=== PATIENT | female | born 1950 | race Caucasian/White ===

== ENCOUNTER → 2018-03-15 | Outpatient (CLI) | payer MEDICARE, BC ==
--- NOTE | 2018-03-15 17:25 | BD ---
EXAMINATION TYPE: Axial Bone Density DATE OF EXAM: 03/15/2018 COMPARISON: NONE CLINICAL HISTORY: 67-year-old female postmenopausal screening Height: 4'11 1/2 Weight: 194 FRAX RISK QUESTIONS: Secondary Osteoporosis: RISK FACTORS HISTORY OF: Family History of Osteoporosis: y Active: y Postmenopausal woman: y MEDICATIONS: Thyroid Medications: Which medication: Synthroid How Lon years Additional Medications: cholesterol, urine frequency, minears Additional History: EXAM MEASUREMENTS: Bone mineral densitometry was performed using the [employer] System. Bone mineral density as measured about the Lumbar spine is: ----- L1-L4(G/cm2): 0.942 T Score Values are as follows: ----- L2: -2.0 ----- L3: -2.0 ----- L4: -1.7 ----- L1-L4: -2.0 Bone mineral density about the R hip (g/cm2): 0.903 Bone mineral density about the L hip (g/cm2): 0.960 T Score values are as follows: -----R Neck: -1.0 -----L Neck: -0.6 -----R Total: -0.4 -----L Total: 0.1 IMPRESSION: Osteopenia (T Score between -2.5 and -1). There is slightly increased risk of fracture and the patient may be considered for treatment. Re-Screen 2-5 years. NOTE: T-SCORE=SD OF THE YOUNG ADULT MEAN.
== END | disposition home or self-care (01) ==
LOC: RADBDWWP 12:59
PROVIDERS: ATTEND Family Medicine
DX: Z13.820 Encounter for screening for osteoporosis (principal); M85.80 Other specified disorders of bone density and structure, unspecified site
CPT/HCPCS: 77080

== ENCOUNTER 2021-05-09 16:51 | Inpatient (IN) | payer MEDICARE, BC ==
[2021-05-09] MEDS ORDERED: SODIUM CHLORIDE 0.9% 1,000 ML IV STA (18:07)
[2021-05-09] MEDS ORDERED: MORPHINE SULFATE 4 MG/ML SYRINGE IVP STA (18:16)
[2021-05-09] MEDS ORDERED: ONDANSETRON 4 MG/2 ML VIAL IVP STA (18:16)
--- NOTE | 2021-05-09 19:13 | ED ---
Abdominal Pain HPI - General Chief Complaint: Abdominal Pain Stated Complaint: Abdominal Pain Time Seen by Provider: 05/09/21 18:07 Source: patient Mode of arrival: ambulatory Limitations: no limitations - History of Present Illness Initial Comments: Anne is a 70-year-old female presents the ER today for evaluation of abdominal pain hroughout the day. Patient reports that she does have a history of what she considers gallbladder attacks but states in the past she's had pain that lasts only 15-20 minutes. She states that yesterday evening the pain began, she's had pain throughout the day. Pain seems to be in the upper abdomen bilaterally worse in the epigastrium and right upper quadrant. Pain is associated with nausea and an episode of vomiting after eating this morning. She was able tolerate some fluids and soup this evening but pain worsened. Patient has no history of surgeries in the abdomen. No associated fevers chills nausea or vomiting. Last bowel movement was yesterday was normal in color caliber and consistency. - Related Data Home Medications Medication Instructions Recorded Confirmed Cholecalciferol [Vitamin D3 (25 25 mcg PO DAILY 06/13/16 05/09/21 Mcg = 1000 Iu)] Liothyronine Sodium [Cytomel] 5 mcg PO DAILY 06/13/16 05/09/21 Meclizine [Antivert] 25 mg PO DAILY 06/13/16 05/09/21 Multivit-Min/FA/Lycopen/Lutein 1 tab PO DAILY 06/13/16 05/09/21 [Centrum Silver Tablet] Triamterene-Hctz 37.5-25Mg 1 cap PO DAILY 06/13/16 05/09/21 [Dyazide 37.5-25 Capsule] Turmeric Root Extract [Turmeric] 500 mg PO TID 06/13/16 05/09/21 Ascorbic Acid [Vitamin C] 500 mg PO DAILY 05/09/21 05/09/21 Aspirin 81 mg PO BID 05/09/21 05/09/21 Garlic 1 tab PO DAILY 05/09/21 05/09/21 Glucosam/Ravinder-Msm1/C/Yusef/Bosw 1 tab PO DAILY 05/09/21 05/09/21 [Glucosamine-Chondroitin Tablet] Levothyroxine Sodium [Synthroid] 112 mcg PO DAILY 05/09/21 05/09/21 Magnesium Citrate 125 mg PO DAILY 05/09/21 05/09/21 Mirabegron [Myrbetriq] 50 mg PO DAILY 05/09/21 05/09/21 Vitamin B Complex 1 cap PO DAILY 05/09/21 05/09/21 Allergies Allergy/AdvReac Type Severity Reaction Status Date / Time benzoyl peroxide Allergy Rash/Hives Verified 05/09/21 17:55 Review of Systems ROS Statement: Those systems with pertinent positive or pertinent negative responses have been documented in the HPI. ROS Other: All systems not noted in ROS Statement are negative. 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 History of Any Multi-Drug Resistant Organisms: None Reported Past Surgical History: Section Additional Past Surgical History / Comment(s): biopsy of gland on neck at 19 years of age, was negative Past Anesthesia/Blood Transfusion Reactions: No Reported Reaction Past Psychological History: No Psychological Hx Reported Smoking Status: Never smoker Past Alcohol Use History: None Reported, Rare Past Drug Use History: None Reported - Past Family History Father Family Medical History: Cancer, Thyroid Disorder Mother Family Medical History: Dementia, Hyperlipidemia, Hypertension, Osteoarthritis (OA), Rheumatoid Arthritis (RA), Thyroid Disorder General Exam - General Exam Comments Initial Comments: Physical Exam GENERAL: Patient is well-developed and well-nourished. Patient is nontoxic and well- hydrated and is in no distress. HENT: Normocephalic, Atraumatic. EYES: PERRL, EOMI PULMONARY: Unlabored respirations. No audible rales rhonchi or wheezing was noted. CARDIOVASCULAR: There is a regular rate and rhythm without any murmurs gallops or rubs. ABDOMEN: Soft, tender to palpation in bilateral upper quadrants Hypoactive bowel sounds SKIN: Skin is clear with no lesions or rashes and otherwise unremarkable. : Deferred NEUROLOGIC: Patient is alert and oriented x3. Moving all extremities spontaneously MUSCULOSKELETAL: Normal extremities with adequate strength and full range of motion. No lower extremity swelling or edema. No calf tenderness. PSYCHIATRIC: Normal psychiatric evaluation. Limitations: no limitations Course Vital Signs 05/09/21 05/09/21 05/09/21 17:56 18:58 21:06 Temperature 98.7 F 98.1 F Pulse Rate 101 H 99 100 Respiratory 18 18 18 Rate Blood Pressure 137/71 141/77 119/65 O2 Sat by Pulse 96 96 95 Oximetry 05/09/21 22:37 Temperature Pulse Rate Respiratory 18 Rate Blood Pressure O2 Sat by Pulse Oximetry Medical Decision Making - Medical Decision Making Patient was seen and evaluated history is obtained from patient, 70-year-old female significant abdominal pain, constipation since yesterday, labs and computed tomography scan were obtained, CT does reveal sigmoid diverticulitis with microperforation. These findings were discussed with general surgeon Dr. Shah who accepts the patient to his service recommends nothing by mouth, IV fluids, antiemetics, pain management, antibiotics. Orders were placed patient was admitted to the hospital. - Lab Data Result diagrams: 05/09/21 19:05/09/21 19:01 Lab Results 05/09/21 05/09/21 05/09/21 Range/Units 19:01 19:01 19:01 WBC 6.9 (3.8-10.6) k/uL RBC 4.13 (3.80-5.40) m/uL Hgb 13.1 (11.4-16.0) gm/dL Hct 37.6 (34.0-46.0) % MCV 91.0 (80.0-100.0) fL MCH 31.7 (25.0-35.0) pg MCHC 34.9 (31.0-37.0) g/dL RDW 14.6 (11.5-15.5) % Plt Count 177 (150-450) k/uL MPV 8.0 Neutrophils % (Manual) 64 % Band Neuts % (Manual) 10 % Lymphocytes % (Manual) 7 % Monocytes % (Manual) 13 % Metamyelocytes % 6 % Neutrophils # (Manual) 5.10 (1.3-7.7) k/uL Lymphocytes # (Manual) 0.48 L (1.0-4.8) k/uL Monocytes # (Manual) 0.90 (0-1.0) k/uL Metamyelocytes # (Man) 0.41 H (0) k/uL Nucleated RBCs 0 (0-0) /100 WBC Manual Slide Review Performed Sodium 130 L (137-145) mmol/L Potassium 3.8 (3.5-5.1) mmol/L Chloride 97 L (98-107) mmol/L Carbon Dioxide 25 (22-30) mmol/L Anion Gap 8 mmol/L BUN 17 (7-17) mg/dL Creatinine 0.67 (0.52-1.04) mg/dL Est GFR (CKD-EPI)AfAm >90 (>60 ml/min/1.73 sqM) Est GFR (CKD-EPI)NonAf >90 (>60 ml/min/1.73 sqM) Glucose 144 H (74-99) mg/dL Plasma Lactic Acid [place] (0.7-2.0) mmol/L Calcium 9.8 (8.4-10.2) mg/dL Total Bilirubin 1.9 H (0.2-1.3) mg/dL AST 26 (14-36) U/L ALT 21 (4-34) U/L Alkaline Phosphatase 39 (38-126) U/L Total Protein 7.7 (6.3-8.2) g/dL Albumin 4.2 (3.5-5.0) g/dL Lipase 43 (23-300) U/L Urine Color Yellow Urine Appearance Clear (Clear) Urine pH 5.5 (5.0-8.0) Ur Specific [place] 1.012 (1.001-1.035) Urine Protein Negative (Negative) Urine Glucose (UA) Negative (Negative) Urine Ketones Negative (Negative) Urine Blood Small H (Negative) Urine Nitrite Negative (Negative) Urine Bilirubin Negative (Negative) Urine Urobilinogen <2.0 (<2.0) mg/dL Ur Leukocyte Esterase Small H (Negative) Urine RBC 4 (0-5) /hpf Urine WBC 8 H (0-5) /hpf Ur Squamous Epith Cells 3 (0-4) /hpf Urine Bacteria Rare H (None) /hpf Hyaline Casts 8 H (0-2) /lpf Urine Mucus Moderate H (None) /hpf 05/09/21 Range/Units 19:01 WBC (3.8-10.6) k/uL RBC (3.80-5.40) m/uL Hgb (11.4-16.0) gm/dL Hct (34.0-46.0) % MCV (80.0-100.0) fL MCH (25.0-35.0) pg MCHC (31.0-37.0) g/dL RDW (11.5-15.5) % Plt Count (150-450) k/uL MPV Neutrophils % (Manual) % Band Neuts % (Manual) % Lymphocytes % (Manual) % Monocytes % (Manual) % Metamyelocytes % % Neutrophils # (Manual) (1.3-7.7) k/uL Lymphocytes # (Manual) (1.0-4.8) k/uL Monocytes # (Manual) (0-1.0) k/uL Metamyelocytes # (Man) (0) k/uL Nucleated RBCs (0-0) /100 WBC Manual Slide Review Sodium (137-145) mmol/L Potassium (3.5-5.1) mmol/L Chloride (98-107) mmol/L Carbon Dioxide (22-30) mmol/L Anion Gap mmol/L BUN (7-17) mg/dL Creatinine (0.52-1.04) mg/dL Est GFR (CKD-EPI)AfAm (>60 ml/min/1.73 sqM) Est GFR (CKD-EPI)NonAf (>60 ml/min/1.73 sqM) Glucose (74-99) mg/dL Plasma Lactic Acid [place] 1.1 (0.7-2.0) mmol/L Calcium (8.4-10.2) mg/dL Total Bilirubin (0.2-1.3) mg/dL AST (14-36) U/L ALT (4-34) U/L Alkaline Phosphatase (38-126) U/L Total Protein (6.3-8.2) g/dL Albumin (3.5-5.0) g/dL Lipase (23-300) U/L Urine Color Urine Appearance (Clear) Urine pH (5.0-8.0) Ur Specific [place] (1.001-1.035) Urine Protein (Negative) Urine Glucose (UA) (Negative) Urine Ketones (Negative) Urine Blood (Negative) Urine Nitrite (Negative) Urine Bilirubin (Negative) Urine Urobilinogen (<2.0) mg/dL Ur Leukocyte Esterase (Negative) Urine RBC (0-5) /hpf Urine WBC (0-5) /hpf Ur Squamous Epith Cells (0-4) /hpf Urine Bacteria (None) /hpf Hyaline Casts (0-2) /lpf Urine Mucus (None) /hpf Disposition Clinical Impression: Perforated diverticulum of large intestine Disposition: ADMITTED IP TO THIS HOSP Condition: Serious
[2021-05-09 19:28] LABS: HCT 37.6 % (34.0-46.0); HGB 13.1 gm/dL (11.4-16.0); MCH 31.7 pg (25.0-35.0); MCHC 34.9 g/dL (31.0-37.0); Platelet Count 177 k/uL (150-450); RBC 4.13 m/uL (3.80-5.40); RDW 14.6 % (11.5-15.5); WBC 6.9 k/uL (3.8-10.6)
[2021-05-09 19:40] LABS: ALT 21 U/L (4-34); AST 26 U/L (14-36); African American GFR (CKD) >90 (>60 ml/min/1.73 sqM); Albumin 4.2 g/dL (3.5-5.0); Alkaline Phosphatase 39 U/L (38-126); Anion Gap 8 mmol/L; Blood Urea Nitrogen 17 mg/dL (7-17); Calcium 9.8 mg/dL (8.4-10.2); Carbon Dioxide 25 mmol/L (22-30); Chloride 97 mmol/L (98-107); Glucose 144 mg/dL (74-99); Lipase 43 U/L (23-300); Non-African American GFR(CKD) >90 (>60 ml/min/1.73 sqM); Potassium 3.8 mmol/L (3.5-5.1); Sodium 130 mmol/L (137-145); Total Bilirubin 1.9 mg/dL (0.2-1.3); Total Protein 7.7 g/dL (6.3-8.2)
[2021-05-09 19:43] LABS: Band Neutrophils % 10 %; Lymphocytes # (M) 0.48 k/uL (1.0-4.8); Metamyelocytes # (M) 0.41 k/uL (0); Metamyelocytes % 6 %; Neutrophils % (M) 64 %; Nucleated Red Blood Cells 0 /100 WBC (0-0); Total Cells Counted 100
[2021-05-09 20:21] LABS: Appearance,Urine Clear (Clear); Bacteria,Urine Rare /hpf; Bilirubin,Urine Negative (Negative); Blood,Urine Small (Negative); Color,Urine Yellow; Glucose,Urine (UA) Negative (Negative); Hyaline Casts,Urine 8 /lpf (0-2); Ketones,Urine Negative (Negative); Leukocyte Esterase,Urine Small (Negative); Mucus,Urine Moderate /hpf; Nitrite,Urine Negative (Negative); PH, Urine 5.5 (5.0-8.0); Protein,Urine Negative (Negative); RBC,Urine 4 /hpf (0-5); Specific Gravity,Urine 1.012 (1.001-1.035); Squamous Epithelial Cell,Urine 3 /hpf (0-4); Urobilinogen,Urine <2.0 mg/dL (<2.0); WBC,Urine 8 /hpf (0-5)
[2021-05-09] MEDS ORDERED: HYDROmorphone 0.5 MG/0.5 ML SYRINGE IVP STA (20:29)
--- NOTE | 2021-05-09 20:59 | CT ---
EXAMINATION TYPE: CT abdomen pelvis w con DATE OF EXAM: 05/09/2021 COMPARISON: None HISTORY: Generalized abdominal pain and constipation. CT DLP: 1237.5 mGycm CONTRAST: CT scan of the abdomen and pelvis is performed without Oral Contrast and with IV Contrast, patient in jected with 100 mL of Isovue 300. FINDINGS: LUNG BASES-: No visible nodule. No infiltrate. LIVER/GB: Large gallstones noted. No wall thickening seen. No space occupying hepatic lesion. Bili trang tree is of normal caliber. PANCREAS: No inflammation. No distinct mass. SPLEEN: No splenic enlargement. No lesion seen. ADRENALS: No nodule. No thickening. KIDNEYS/BLADDER: No hydronephrosis. No nephrolithiasis. No distinct renal mass. Urinary bladder g rossly unremarkable. BOWEL: There is moderate inflammatory change noted to involve the sigmoid colon small area of perfora tion seen. Findings are compatible with acute diverticulitis. No evidence for abscess at this time fo r domo pneumoperitoneum. There is evidence of small bowel ileus. GENITAL ORGANS: No gross abnormality. LYMPH NODES: No greater than 1cm abdominal or pelvic lymph nodes are appreciated. AORTA: No significant abnormality. OSSEOUS STRUCTURES: No significant abnormality is seen. OTHER: No significant additional abnormality is seen. IMPRESSION: 1. Moderate sigmoid diverticulitis without evidence for abscess. Small perforation noted. 2. Cholelithiasis. 3. Small bowel ileus.
[2021-05-09] MEDS ORDERED: MORPHINE SULFATE 4 MG/ML SYRINGE IV PRN (21:29)
[2021-05-09] MEDS ORDERED: NALOXONE 0.4 MG/ML 1 ML VIAL IV PRN (21:29)
[2021-05-09] MEDS ORDERED: ONDANSETRON 4 MG/2 ML VIAL IVP PRN (21:29)
[2021-05-09] MEDS: SODIUM CHLORIDE 0.9% 1,000 ML IV SCH (21:49)
[2021-05-10] MEDS: HYDROmorphone 0.5 MG/0.5 ML SYRINGE IVP PRN ×6 (00:02→20:20)
[2021-05-10] MEDS: PIPERACILLIN-TAZOBACTAM 3.375 GM in SODIUM CHLORIDE 0.9% 100 ML IVPB SCH ×3 (00:07→16:07)
[2021-05-10] MEDS: SODIUM CHLORIDE 0.9% 1,000 ML IV SCH ×2 (06:11→14:19)
--- NOTE | 2021-05-10 11:08 | P.GSHP ---
History of Present Illness H&P Date: 05/10/21 Chief Complaint: Diverticulitis with microperforation Is a 62-year-old female who had sudden acute abdominal pain yesterday. Patient was worked up emergency room found have evidence of diverticulitis with microperforation. She states her pain is improved compared to yesterday. 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 History of Any Multi-Drug Resistant Organisms: None Reported Past Surgical History: Section Additional Past Surgical History / Comment(s): biopsy of gland on neck at 19 years of age, was negative Past Anesthesia/Blood Transfusion Reactions: No Reported Reaction Past Psychological History: No Psychological Hx Reported Smoking Status: Never smoker Past Alcohol Use History: None Reported, Rare Past Drug Use History: None Reported - Past Family History Father Family Medical History: Cancer, Thyroid Disorder Additional Family Medical History / Comment(s): Throat cancer Mother Family Medical History: Dementia, Hyperlipidemia, Hypertension, Osteoarthritis (OA), Rheumatoid Arthritis (RA), Thyroid Disorder Medications and Allergies Home Medications Medication Instructions Recorded Confirmed Type Cholecalciferol [Vitamin D3 (25 25 mcg PO DAILY 06/13/16 05/09/21 History Mcg = 1000 Iu)] Liothyronine Sodium [Cytomel] 5 mcg PO DAILY 06/13/16 05/09/21 History Meclizine [Antivert] 25 mg PO DAILY 06/13/16 05/09/21 History Multivit-Min/FA/Lycopen/Lutein 1 tab PO DAILY 06/13/16 05/09/21 History [Centrum Silver Tablet] Triamterene-Hctz 37.5-25Mg 1 cap PO DAILY 06/13/16 05/09/21 History [Dyazide 37.5-25 Capsule] Turmeric Root Extract [Turmeric] 500 mg PO TID 06/13/16 05/09/21 History Ascorbic Acid [Vitamin C] 500 mg PO DAILY 05/09/21 05/09/21 History Aspirin 81 mg PO BID 05/09/21 05/09/21 History Garlic 1 tab PO DAILY 05/09/21 05/09/21 History Glucosam/Ravinder-Msm1/C/Yusef/Bosw 1 tab PO DAILY 05/09/21 05/09/21 History [Glucosamine-Chondroitin Tablet] Levothyroxine Sodium [Synthroid] 112 mcg PO DAILY 05/09/21 05/09/21 History Magnesium Citrate 125 mg PO DAILY 05/09/21 05/09/21 History Mirabegron [Myrbetriq] 50 mg PO DAILY 05/09/21 05/09/21 History Vitamin B Complex 1 cap PO DAILY 05/09/21 05/09/21 History Allergies Allergy/AdvReac Type Severity Reaction Status Date / Time benzoyl peroxide Allergy Rash/Hives Verified 05/09/21 17:55 Surgical - Exam Vital Signs Temp Pulse Resp BP Pulse Ox 98.7 F 101 H 18 137/71 96 05/09/21 17:56 05/09/21 17:56 05/09/21 17:56 05/09/21 17:56 05/09/21 17:56 - General well developed, well nourished, no distress - Eyes PERRL - ENT normal pinna - Neck no masses - Respiratory normal expansion - Cardiovascular Rhythm: regular - Abdomen Mild diffuse tenderness left side. There is no rebound or guarding Abdomen: soft Results - Labs 05/09/21 19:01 05/09/21 19:01 Abnormal Lab Results - Last 24 Hours (Table) 05/09/21 05/09/21 05/09/21 Range/Units 19:01 19:01 19:01 Lymphocytes # (Manual) 0.48 L (1.0-4.8) k/uL Metamyelocytes # (Man) 0.41 H (0) k/uL Sodium 130 L (137-145) mmol/L Chloride 97 L (98-107) mmol/L Glucose 144 H (74-99) mg/dL Total Bilirubin 1.9 H (0.2-1.3) mg/dL Urine Blood Small H (Negative) Ur Leukocyte Esterase Small H (Negative) Urine WBC 8 H (0-5) /hpf Urine Bacteria Rare H (None) /hpf Hyaline Casts 8 H (0-2) /lpf Urine Mucus Moderate H (None) /hpf Diabetes panel 05/09/21 Range/Units 19:01 Sodium 130 L (137-145) mmol/L Potassium 3.8 (3.5-5.1) mmol/L Chloride 97 L (98-107) mmol/L Carbon Dioxide 25 (22-30) mmol/L BUN 17 (7-17) mg/dL Creatinine 0.67 (0.52-1.04) mg/dL Glucose 144 H (74-99) mg/dL Calcium 9.8 (8.4-10.2) mg/dL AST 26 (14-36) U/L ALT 21 (4-34) U/L Alkaline Phosphatase 39 (38-126) U/L Total Protein 7.7 (6.3-8.2) g/dL Albumin 4.2 (3.5-5.0) g/dL Calcium panel 05/09/21 Range/Units 19:01 Calcium 9.8 (8.4-10.2) mg/dL Albumin 4.2 (3.5-5.0) g/dL Pituitary panel 05/09/21 Range/Units 19:01 Sodium 130 L (137-145) mmol/L Potassium 3.8 (3.5-5.1) mmol/L Chloride 97 L (98-107) mmol/L Carbon Dioxide 25 (22-30) mmol/L BUN 17 (7-17) mg/dL Creatinine 0.67 (0.52-1.04) mg/dL Glucose 144 H (74-99) mg/dL Calcium 9.8 (8.4-10.2) mg/dL Adrenal panel 05/09/21 Range/Units 19:01 Sodium 130 L (137-145) mmol/L Potassium 3.8 (3.5-5.1) mmol/L Chloride 97 L (98-107) mmol/L Carbon Dioxide 25 (22-30) mmol/L BUN 17 (7-17) mg/dL Creatinine 0.67 (0.52-1.04) mg/dL Glucose 144 H (74-99) mg/dL Calcium 9.8 (8.4-10.2) mg/dL Total Bilirubin 1.9 H (0.2-1.3) mg/dL AST 26 (14-36) U/L ALT 21 (4-34) U/L Alkaline Phosphatase 39 (38-126) U/L Total Protein 7.7 (6.3-8.2) g/dL Albumin 4.2 (3.5-5.0) g/dL Assessment and Plan Assessment: Diverticulitis. Patient will be treated medically. We'll continue IV antibiotics. If her condition changes she may require surgical expiration.
[2021-05-10 20:21] LABS: Glucose,Whole Blood 133 mg/dL (75-99)
--- NOTE | 2021-05-10 20:55 | CT ---
EXAMINATION TYPE: CODE STROKE: CT brain wo contr DATE OF EXAM: 05/10/2021 COMPARISON: CT head 06/13/2016 HISTORY: Foot numbness. CT DLP: 1126.5 mGycm Automated exposure control for dose reduction was used. TECHNIQUE: Contiguous axial CT images of the head were performed without the administration of intrav enous contrast. 2-D sagittal and coronal reformats were obtained. FINDINGS: There is no acute intracranial hemorrhage, mass effect, or midline shift identified. The ventricles and sulci are within normal limits in size. Shaw-white differentiation is preserved. No CT evidence of acute large vessel ischemic changes. The globes are intact and the visualized sinuses are clear. IMPRESSION: No acute intracranial process.
[2021-05-11] MEDS: PIPERACILLIN-TAZOBACTAM 3.375 GM in SODIUM CHLORIDE 0.9% 100 ML IVPB SCH ×3 (00:50→16:01)
[2021-05-11] MEDS: SODIUM CHLORIDE 0.9% 1,000 ML IV SCH ×3 (00:51→16:04)
[2021-05-11] MEDS: HYDROmorphone 0.5 MG/0.5 ML SYRINGE IVP PRN ×5 (00:54→21:02)
[2021-05-11] MEDS: LEVOTHYROXINE 112 MCG TAB PO SCH (05:12)
[2021-05-11 06:20] LABS: HCT 37.7 % (34.0-46.0); HGB 13.2 gm/dL (11.4-16.0); MCH 32.4 pg (25.0-35.0); MCHC 35.1 g/dL (31.0-37.0); MCV 92.4 fL (80.0-100.0); Mean Platelet Volume 8.3; Platelet Count 220 k/uL (150-450); RBC 4.08 m/uL (3.80-5.40); RDW 14.7 % (11.5-15.5); WBC 4.1 k/uL (3.8-10.6)
[2021-05-11 07:00] LABS: Band Neutrophils % 3 %; Eosinophils # (M) 0.04 k/uL (0-0.7); Lymphocytes # (M) 0.62 k/uL (1.0-4.8); Monocytes # (M) 1.07 k/uL (0-1.0); Neutrophils % (M) 55 %; Nucleated Red Blood Cells 0 /100 WBC (0-0); Total Cells Counted 100
[2021-05-11] MEDS: LIOTHYRONINE SODIUM 5 MCG TAB PO SCH (08:40)
[2021-05-11 10:11] LABS: African American GFR (CKD) 87.4 (60.0-200.0); Anion Gap 12.8 mmol/L (4.00-12.00); BUN/Creat Ratio 16.69 Ratio (12.00-20.00); Blood Urea Nitrogen 13.4 mg/dL (9.0-27.0); C Reactive Protein 17.5 mg/dL (0.00-0.80); Calcium 8.9 mg/dL (8.7-10.3); Carbon Dioxide 22.8 mmol/L (21.6-31.8); Non-African American GFR(CKD) 75.4 (60.0-200.0); Potassium 3.9 mmol/L (3.5-5.5)
--- NOTE | 2021-05-11 10:43 | P.PN ---
Progress Note - Text Progress Note Date: 05/11/21 Patient still has complaints of some abdominal pain. She feels bloated. She is not passing any flatus. She's had some burping. On exam her vital signs are stable. Abdomen is soft. There is some distention. Patient is developed a ileus. She will continue to receive IV antibiotics for her diverticulitis and microperforation. She'll continue receive supportive care.
--- NOTE | 2021-05-11 17:07 | P.CONS ---
History of Present Illness - Reason for Consult Consult date: 05/10/21 Medical management - Chief Complaint Abdominal pain - History of Present Illness 70-year-old female presents the ER today for evaluation of abdominal pain hroughout the day. Patient reports that she does have a history of what she considers gallbladder attacks but states in the past she's had pain that lasts only 15-20 minutes. She states that yesterday evening the pain began, she's had pain throughout the day. Pain seems to be in the upper abdomen bilaterally worse in the epigastrium and right upper quadrant. Pain is associated with nausea and an episode of vomiting after eating this morning. She was able tolerate some fluids and soup this evening but pain worsened. Patient has no history of surgeries in the abdomen. No associated fevers chills nausea or vomiting. Last bowel movement was yesterday was normal in color caliber and consistency. Workup in ED includes labs with WBC 6.9, hemoglobin 13.1 and platelet count of 177; sodium 1:30, potassium 3.8, BUN/creatinine 17/0.67 and blood glucose of 144; CT of the abdomen does reveal sigmoid diverticulitis with microperforation Review of Systems REVIEW OF SYSTEMS: CONSTITUTIONAL: No fever, no malaise, no fatigue. HEENT: No recent visual problems or hearing problems. Denied any sore throat. CARDIOVASCULAR: No chest pain, orthopnea, PND, no palpitations, no syncope. PULMONARY: No shortness of breath, no cough, no hemoptysis. GASTROINTESTINAL: abdominal pain. NEUROLOGICAL: No headaches, no weakness, no numbness. HEMATOLOGICAL: Denies any bleeding or petechiae. GENITOURINARY: Denies any burning micturition, frequency, or urgency. MUSCULOSKELETAL/RHEUMATOLOGICAL: Denies any joint pain, swelling, or any muscle pain. ENDOCRINE: Denies any polyuria or polydipsia. The rest of the 14-point review of systems is negative. 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 History of Any Multi-Drug Resistant Organisms: None Reported Past Surgical History: Section Additional Past Surgical History / Comment(s): biopsy of gland on neck at 19 years of age, was negative Past Anesthesia/Blood Transfusion Reactions: No Reported Reaction Past Psychological History: No Psychological Hx Reported Smoking Status: Never smoker Past Alcohol Use History: None Reported, Rare Past Drug Use History: None Reported - Past Family History Father Family Medical History: Cancer, Thyroid Disorder Additional Family Medical History / Comment(s): Throat cancer Mother Family Medical History: Dementia, Hyperlipidemia, Hypertension, Osteoarthritis (OA), Rheumatoid Arthritis (RA), Thyroid Disorder Medications and Allergies Home Medications Medication Instructions Recorded Confirmed Type Cholecalciferol [Vitamin D3 (25 25 mcg PO DAILY 06/13/16 05/09/21 History Mcg = 1000 Iu)] Liothyronine Sodium [Cytomel] 5 mcg PO DAILY 06/13/16 05/09/21 History Meclizine [Antivert] 25 mg PO DAILY 06/13/16 05/09/21 History Multivit-Min/FA/Lycopen/Lutein 1 tab PO DAILY 06/13/16 05/09/21 History [Centrum Silver Tablet] Triamterene-Hctz 37.5-25Mg 1 cap PO DAILY 06/13/16 05/09/21 History [Dyazide 37.5-25 Capsule] Turmeric Root Extract [Turmeric] 500 mg PO TID 06/13/16 05/09/21 History Ascorbic Acid [Vitamin C] 500 mg PO DAILY 05/09/21 05/09/21 History Aspirin 81 mg PO BID 05/09/21 05/09/21 History Garlic 1 tab PO DAILY 05/09/21 05/09/21 History Glucosam/Ravinder-Msm1/C/Yusef/Bosw 1 tab PO DAILY 05/09/21 05/09/21 History [Glucosamine-Chondroitin Tablet] Levothyroxine Sodium [Synthroid] 112 mcg PO DAILY 05/09/21 05/09/21 History Magnesium Citrate 125 mg PO DAILY 05/09/21 05/09/21 History Mirabegron [Myrbetriq] 50 mg PO DAILY 05/09/21 05/09/21 History Vitamin B Complex 1 cap PO DAILY 05/09/21 05/09/21 History Allergies Allergy/AdvReac Type Severity Reaction Status Date / Time benzoyl peroxide Allergy Rash/Hives Verified 05/09/21 17:55 Physical Exam Vitals: Vital Signs Temp Pulse Pulse Resp BP BP Pulse Ox 05/10/21 11:49 98.1 F 92 16 115/72 95 05/10/21 04:12 98.5 F 90 20 130/75 94 L 05/10/21 00:00 16 05/09/21 23:44 97.9 F 97 20 124/74 95 05/09/21 23:19 98.0 F 95 18 110/68 94 L 05/09/21 22:37 18 05/09/21 21:06 98.1 F 100 18 119/65 95 05/09/21 18:58 99 18 141/77 96 05/09/21 17:56 98.7 F 101 H 18 137/71 96 Intake and Output 05/10/21 05/10/21 05/10/21 06:59 14:59 22:59 Intake Total 1779 Balance 1779 Intake: Intake, IV Titration 1780 Amount Piperacillin-Tazobactam 3 100 .375 gm In Sodium Chloride 0.9% 100 ml @ 25 mls/hr IVPB Q8HR [facility] Rx# :[id number] Sodium Chloride 0.9% 1, 780 000 ml @ 130 mls/hr IV . Q7H42M [facility] Rx#:[id number] Sodium Chloride 0.9% 1, 900 000 ml @ 130 mls/hr IV . Q7H42M [facility] Rx#:[id number] Oral 0 Other: Voiding Method Toilet # Voids 2 # Emeses 0 - Constitutional General appearance: Present: average body habitus, cooperative, no acute distress - EENT Eyes: Present: anicteric sclerae, EOMI, PERRLA, normal appearance ENT: Present: hearing grossly normal, normal oropharynx Ears: bilateral: normal - Neck Neck: Present: normal ROM. Absent: lymphadenopathy, rigidity, thyromegaly Carotids: negative: bruit present Thyroid: bilateral: normal size, negative: enlarged, nodule - Respiratory Respiratory: bilateral: CTA, negative: rales, rhonchi, wheezing - Cardiovascular Rhythm: regular Heart sounds: normal: S1, S2 Abnormal Heart Sounds: Absent: systolic murmur, diastolic murmur - Gastrointestinal General gastrointestinal: Marked diffuse abdominal tenderness - Genitourinary Genitourinary Comment(s): deferred - Integumentary Integumentary: Present: normal turgor. Absent: jaundiced, rash, ulcer - Neurologic Neurologic: Present: CNII-XII intact. Absent: focal deficits - Musculoskeletal Musculoskeletal: Present: gait normal, strength equal bilaterally - Psychiatric Psychiatric: Present: A&O x's 3, appropriate affect, intact judgment & insight Results CBC & Chem 7: 05/11/21 05:34 05/11/21 05:34 Labs: Abnormal Lab Results - Last 24 Hours (Table) 05/09/21 05/09/21 05/09/21 Range/Units 19:01 19:01 19:01 Lymphocytes # (Manual) 0.48 L (1.0-4.8) k/uL Metamyelocytes # (Man) 0.41 H (0) k/uL Sodium 130 L (137-145) mmol/L Chloride 97 L (98-107) mmol/L Glucose 144 H (74-99) mg/dL Total Bilirubin 1.9 H (0.2-1.3) mg/dL Urine Blood Small H (Negative) Ur Leukocyte Esterase Small H (Negative) Urine WBC 8 H (0-5) /hpf Urine Bacteria Rare H (None) /hpf Hyaline Casts 8 H (0-2) /lpf Urine Mucus Moderate H (None) /hpf Assessment and Plan Assessment: 1. Acute diverticulitis with microperforation - Patient is planned to be treated medically with IV antibiotics in form of Zosyn 3.375 g IV every 8 hours and IV fluids; plan is to monitor clinically with plans to proceed with surgical exploration if patient continues to deteriorate - We will monitor CBC, CRP and pro-calcitonin 2. Hyponatremia; IV fluids in form of normal saline at 75 mL an hour; we will monitor electrolytes and monitor strict ELI's 3. Hyperglycemia; no history of diabetes; possibly stress related; we will monitor Accu-Cheks with further recommendations according 4. Hyperlipidemia; hold off on statin therapy to oral intake improves 5. Hypothyroidism; continue with home dose of levothyroxine and Cytomel 6. CVA/TIA; continue with aspirin 81 mg daily DVT prophylaxis; SCDs CODE STATUS; full code
--- NOTE | 2021-05-11 20:48 | P.PN ---
Subjective Progress Note Date: 05/11/21 Principal diagnosis: Sigmoid diverticulitis with microperforation Hyponatremia Hyperglycemia 70-year-old female presents the ER today for evaluation of abdominal pain hroughout the day. Patient reports that she does have a history of what she considers gallbladder attacks but states in the past she's had pain that lasts only 15-20 minutes. She states that yesterday evening the pain began, she's had pain throughout the day. Pain seems to be in the upper abdomen bilaterally worse in the epigastrium and right upper quadrant. Pain is associated with nausea and an episode of vomiting after eating this morning. She was able tolerate some fluids and soup this evening but pain worsened. Patient has no history of surgeries in the abdomen. No associated fevers chills nausea or vomiting. Last bowel movement was yesterday was normal in color caliber and consistency. Workup in ED includes labs with WBC 6.9, hemoglobin 13.1 and platelet count of 177; sodium 1:30, potassium 3.8, BUN/creatinine 17/0.67 and blood glucose of 144; CT of the abdomen does reveal sigmoid diverticulitis with microperforation 05/11/2021 Patient is seen and evaluated with family members at bedside; reports abdominal distention and bloating; has been burping; no flatus or BM Vital signs are reviewed and stable with temperature of 98.7, pulse 89, respirations 16 and blood pressure 139/79 Lab review shows W BC 4.1, hemoglobin 13.2 and hematocrit of 37.7, platelet count of 220; sodium 136, potassium 3.9, BUN/creatinine of 13.4/0.8 Patient remains on IV antibiotics; general surgery on board and recommending to continue with conservative management; continue with IV fluid hydration Objective - Vital Signs Vital signs: Vital Signs Temp 98.7 F 05/11/21 13:11 Pulse 89 05/11/21 13:11 Resp 16 05/11/21 13:11 BP 139/71 05/11/21 13:11 Pulse Ox 90 L 05/11/21 13:11 Intake & Output 05/10/21 05/11/21 05/11/21 18:59 06:59 18:59 Intake Total 1660 300 Balance 1660 300 Intake: Intake, IV Titration 1660 Amount Piperacillin-Tazobactam 3 100 .375 gm In Sodium Chloride 0.9% 100 ml @ 25 mls/hr IVPB Q8HR [facility] Rx# :[id number] Sodium Chloride 0.9% 1, 1560 000 ml @ 130 mls/hr IV . Q7H42M [facility] Rx#:[id number] Oral 300 Other: Voiding Method Toilet # Voids 2 # Emeses 0 - Exam PHYSICAL EXAMINATION: GENERAL: The patient is alert and oriented x3, not in any acute distress. Well developed, well nourished. HEENT: Pupils are round and equally reacting to light. EOMI. No scleral icterus. No conjunctival pallor. Normocephalic, atraumatic. No pharyngeal erythema. No thyromegaly. CARDIOVASCULAR: S1 and S2 present. No murmurs, rubs, or gallops. PULMONARY: Chest is clear to auscultation, no wheezing or crackles. ABDOMEN: Soft, nontender, distended. MUSCULOSKELETAL: No joint swelling or deformity. EXTREMITIES: No cyanosis, clubbing, or pedal edema. NEUROLOGICAL: Gross neurological examination did not reveal any focal deficits. SKIN: No rashes. - Labs CBC & Chem 7: 05/11/21 05:34 05/11/21 05:34 Labs: Abnormal Lab Results - Last 24 Hours (Table) 05/10/21 05/11/21 05/11/21 Range/Units 20:18 05:34 05:34 Lymphocytes # (Manual) 0.62 L (1.0-4.8) k/uL Monocytes # (Manual) 1.07 H (0-1.0) k/uL Anion Gap (4.00-12.00) mmol/L Glucose (70-110) mg/dL POC Glucose (mg/dL) 133 H (75-99) mg/dL C-Reactive Protein (0.00-0.80) mg/dL Procalcitonin 0.17 H (0.02-0.09) ng/mL 05/11/21 Range/Units 05:34 Lymphocytes # (Manual) (1.0-4.8) k/uL Monocytes # (Manual) (0-1.0) k/uL Anion Gap 12.80 H (4.00-12.00) mmol/L Glucose 121 H (70-110) mg/dL POC Glucose (mg/dL) (75-99) mg/dL C-Reactive Protein 17.50 H (0.00-0.80) mg/dL Procalcitonin (0.02-0.09) ng/mL Assessment and Plan Assessment: 1. Acute diverticulitis with microperforation - Patient is planned to be treated medically with IV antibiotics in form of Zosyn 3.375 g IV every 8 hours and IV fluids; plan is to monitor clinically with plans to proceed with surgical exploration if patient continues to deteriorate - We will monitor CBC, CRP and pro-calcitonin 2. Hyponatremia; IV fluids in form of normal saline at 75 mL an hour; we will monitor electrolytes and monitor strict ELI's 3. Hyperglycemia; no history of diabetes; possibly stress related; we will monitor Accu-Cheks with further recommendations according 4. Hyperlipidemia; hold off on statin therapy to oral intake improves 5. Hypothyroidism; continue with home dose of levothyroxine and Cytomel 6. CVA/TIA; continue with aspirin 81 mg daily DVT prophylaxis; SCDs CODE STATUS; full code
[2021-05-12] MEDS: PIPERACILLIN-TAZOBACTAM 3.375 GM in SODIUM CHLORIDE 0.9% 100 ML IVPB SCH ×4 (00:03→23:35)
[2021-05-12] MEDS: HYDROmorphone 0.5 MG/0.5 ML SYRINGE IVP PRN ×5 (00:40→21:26)
[2021-05-12] MEDS: SODIUM CHLORIDE 0.9% 1,000 ML IV SCH ×5 (03:48→19:59)
[2021-05-12] MEDS: LEVOTHYROXINE 112 MCG TAB PO SCH (06:12)
[2021-05-12] MEDS: LIOTHYRONINE SODIUM 5 MCG TAB PO SCH (09:01)
[2021-05-12] MEDS: MECLIZINE 25 MG TAB PO SCH (11:41)
--- NOTE | 2021-05-12 14:14 | P.PN ---
Subjective Progress Note Date: 05/12/21 CHIEF COMPLAINT: Abdominal pain HISTORY OF PRESENT ILLNESS: Patient has been followed for diverticulitis with microperforation. She is reporting improvement in her abdominal pain. She reports that her pain is now moving more lower in the abdomen but is controlled. She is having bowel movements and flatus. Denies a nausea vomiting. Afebrile. PHYSICAL EXAM: VITAL SIGNS: Reviewed. GENERAL: Well-developed in no acute distress. HEENT: No sclera icterus. Extraocular movements grossly intact. Moist buccal mucosa. Head is atraumatic, normocephalic. ABDOMEN: Soft. Nondistended. Minimal Lower abdominal tenderness with palpation NEUROLOGIC: Alert and oriented. Cranial nerves II through XII grossly intact. ASSESSMENT: 1. Diverticulitis with microperforation 2. Ileus PLAN: -Advance diet to full liquids -Continue antibiotics -Continue IV fluids -Encourage patient to ambulate Physician Travel Rn Or note has been reviewed by physician. Signing provider agrees with the documented findings, assessment, and plan of care. Objective - Vital Signs Vital signs: Vital Signs Temp 98 F 05/12/21 11:47 Pulse 82 05/12/21 11:47 Resp 18 05/12/21 11:47 BP 124/75 05/12/21 11:47 Pulse Ox 95 05/12/21 11:47 Intake & Output 05/11/21 05/12/21 05/12/21 18:59 06:59 18:59 Intake Total 1660 2140 Balance 1660 2140 Intake: IV 1660 Piperacillin-Tazobactam 3 100 .375 gm In Sodium Chloride 0.9% 100 ml @ 25 mls/hr IVPB Q8HR [facility] Rx# :[id number] Sodium Chloride 0.9% 1, 1560 000 ml @ 130 mls/hr IV . Q7H42M [facility] Rx#:[id number] Intake, IV Titration 1660 Amount Piperacillin-Tazobactam 3 100 .375 gm In Sodium Chloride 0.9% 100 ml @ 25 mls/hr IVPB Q8HR [facility] Rx# :[id number] Sodium Chloride 0.9% 1, 1560 000 ml @ 130 mls/hr IV . Q7H42M [facility] Rx#:[id number] Oral 480 Other: # Voids 3 - Labs CBC & Chem 7: 05/11/21 05:34 05/11/21 05:34
[2021-05-12] MEDS: DOCUSATE 100 MG CAP PO SCH (17:55)
[2021-05-12] MEDS: HYDROcodone/APAP 5-325MG 1 EACH TAB PO PRN (17:55)
[2021-05-13] MEDS: SODIUM CHLORIDE 0.9% 1,000 ML IV SCH (03:32)
[2021-05-13] MEDS: HYDROmorphone 0.5 MG/0.5 ML SYRINGE IVP PRN (04:51)
[2021-05-13] MEDS: HYDROcodone/APAP 5-325MG 1 EACH TAB PO PRN (06:00)
[2021-05-13] MEDS: LEVOTHYROXINE 112 MCG TAB PO SCH (06:00)
[2021-05-13] MEDS: PIPERACILLIN-TAZOBACTAM 3.375 GM in SODIUM CHLORIDE 0.9% 100 ML IVPB SCH (08:16)
[2021-05-13] MEDS: MECLIZINE 25 MG TAB PO SCH (08:16)
[2021-05-13] MEDS: LIOTHYRONINE SODIUM 5 MCG TAB PO SCH (08:16)
[2021-05-13] MEDS: DOCUSATE 100 MG CAP PO SCH (08:16)
[2021-05-13 09:36] LABS: Basophils % (A) 0 %; Eosinophils % (A) 1 %; HCT 34.8 % (34.0-46.0); HGB 11.8 gm/dL (11.4-16.0); Lymphocytes # (A) 1.8 k/uL (1.0-4.8); Lymphocytes % (A) 33 %; MCH 32.2 pg (25.0-35.0); MCHC 33.7 g/dL (31.0-37.0); MCV 95.4 fL (80.0-100.0); Mean Platelet Volume 8.6; Monocytes # (A) 0.7 k/uL (0-1.0); Monocytes % (A) 13 %; Neutrophils # (A) 2.7 k/uL (1.3-7.7); Neutrophils % (A) 51 %; Platelet Count 271 k/uL (150-450); RBC 3.65 m/uL (3.80-5.40); RDW 14.8 % (11.5-15.5); WBC 5.4 k/uL (3.8-10.6)
[2021-05-13 12:20] VITALS: BP 138/81; PULSE 76; RESP 18; TEMP 98
[2021-05-13] MEDS ORDERED: PSYLLIUM HUSK 100% 6 GM PACKET PO SCH (12:30)
[2021-05-13] MEDS ORDERED: LACTULOSE 20 GM/30 ML CUP PO ONE (13:48)
--- NOTE | 2021-05-13 14:20 | P.PN ---
Subjective Progress Note Date: 05/12/21 Principal diagnosis: Sigmoid diverticulitis with microperforation Hyponatremia Hyperglycemia 70-year-old female presents the ER today for evaluation of abdominal pain hroughout the day. Patient reports that she does have a history of what she considers gallbladder attacks but states in the past she's had pain that lasts only 15-20 minutes. She states that yesterday evening the pain began, she's had pain throughout the day. Pain seems to be in the upper abdomen bilaterally worse in the epigastrium and right upper quadrant. Pain is associated with nausea and an episode of vomiting after eating this morning. She was able tolerate some fluids and soup this evening but pain worsened. Patient has no history of surgeries in the abdomen. No associated fevers chills nausea or vomiting. Last bowel movement was yesterday was normal in color caliber and consistency. Workup in ED includes labs with WBC 6.9, hemoglobin 13.1 and platelet count of 177; sodium 1:30, potassium 3.8, BUN/creatinine 17/0.67 and blood glucose of 144; CT of the abdomen does reveal sigmoid diverticulitis with microperforation 05/11/2021 Patient is seen and evaluated with family members at bedside; reports abdominal distention and bloating; has been burping; no flatus or BM Vital signs are reviewed and stable with temperature of 98.7, pulse 89, respirations 16 and blood pressure 139/79 Lab review shows W BC 4.1, hemoglobin 13.2 and hematocrit of 37.7, platelet count of 220; sodium 136, potassium 3.9, BUN/creatinine of 13.4/0.8 Patient remains on IV antibiotics; general surgery on board and recommending to continue with conservative management; continue with IV fluid hydration 05/12/2021 Patient is currently sitting in the bed comfortably. Denied any complaints of nausea and vomiting. Abdominal discomfort/pain is much improved. Patient is able to pass flatness. Patient was started on oral diet and advance as tolerated. Continued on antibiotics in the form of Zosyn. Patient has been afebrile. No complaints of chest pain or shortness breath. No fever no chills. Gen. surgery is following. Current medications reviewed. Objective - Vital Signs Vital signs: Vital Signs Temp 98.2 F 05/12/21 20:48 Pulse 81 10/25/21 20:48 Resp 16 05/12/21 20:48 BP 123/75 05/12/21 20:48 Pulse Ox 97 05/12/21 20:48 Intake & Output 05/12/21 05/12/21 05/13/21 06:59 18:59 06:59 Intake Total 2140 1660 Balance 2140 1660 Intake: IV 1660 100 Piperacillin-Tazobactam 3 100 100 .375 gm In Sodium Chloride 0.9% 100 ml @ 25 mls/hr IVPB Q8HR [facility] Rx# :[id number] Sodium Chloride 0.9% 1, 1560 000 ml @ 130 mls/hr IV . Q7H42M [facility] Rx#:[id number] Intake, IV Titration 1560 Amount Sodium Chloride 0.9% 1, 1560 000 ml @ 130 mls/hr IV . Q7H42M [facility] Rx#:[id number] Oral 480 Other: # Voids 3 - Exam PHYSICAL EXAMINATION: GENERAL: The patient is alert and oriented x3, not in any acute distress. Well developed, well nourished. HEENT: Pupils are round and equally reacting to light. EOMI. No scleral icterus. No conjunctival pallor. Normocephalic, atraumatic. No pharyngeal erythema. No thyromegaly. CARDIOVASCULAR: S1 and S2 present. No murmurs, rubs, or gallops. PULMONARY: Chest is clear to auscultation, no wheezing or crackles. ABDOMEN: Soft, nontender, distended. MUSCULOSKELETAL: No joint swelling or deformity. EXTREMITIES: No cyanosis, clubbing, or pedal edema. NEUROLOGICAL: Gross neurological examination did not reveal any focal deficits. SKIN: No rashes. - Labs CBC & Chem 7: 05/13/21 08:44 05/11/21 05:34 Assessment and Plan Assessment: 1. Acute diverticulitis with microperforation - Patient is planned to be treated medically with IV antibiotics in form of Zosyn 3.375 g IV every 8 hours and IV fluids; plan is to monitor clinically with plans to proceed with surgical exploration if patient deteriorates - We will monitor CBC, and BMP -Follow up culture reports. Patient will need outpatient antibiotic course with Levaquin and Flagyl. 2. Hyponatremia; likely hypovolemic IV fluids in form of normal saline at 75 mL an hour; improved now. 3. Hyperglycemia; no history of diabetes; possibly stress related; we will monitor Accu-Cheks with further recommendations according 4. Hyperlipidemia; hold off on statin therapy to oral intake improves 5. Hypothyroidism; continue with home dose of levothyroxine and Cytomel 6. CVA/TIA; continue with aspirin 81 mg daily DVT prophylaxis; SCDs CODE STATUS; full code
--- NOTE | 2021-05-13 14:22 | P.PN ---
Subjective Progress Note Date: 05/13/21 Principal diagnosis: Sigmoid diverticulitis with microperforation Hyponatremia Hyperglycemia 70-year-old female presents the ER today for evaluation of abdominal pain hroughout the day. Patient reports that she does have a history of what she considers gallbladder attacks but states in the past she's had pain that lasts only 15-20 minutes. She states that yesterday evening the pain began, she's had pain throughout the day. Pain seems to be in the upper abdomen bilaterally worse in the epigastrium and right upper quadrant. Pain is associated with nausea and an episode of vomiting after eating this morning. She was able tolerate some fluids and soup this evening but pain worsened. Patient has no history of surgeries in the abdomen. No associated fevers chills nausea or vomiting. Last bowel movement was yesterday was normal in color caliber and consistency. Workup in ED includes labs with WBC 6.9, hemoglobin 13.1 and platelet count of 177; sodium 1:30, potassium 3.8, BUN/creatinine 17/0.67 and blood glucose of 144; CT of the abdomen does reveal sigmoid diverticulitis with microperforation 05/11/2021 Patient is seen and evaluated with family members at bedside; reports abdominal distention and bloating; has been burping; no flatus or BM Vital signs are reviewed and stable with temperature of 98.7, pulse 89, respirations 16 and blood pressure 139/79 Lab review shows W BC 4.1, hemoglobin 13.2 and hematocrit of 37.7, platelet count of 220; sodium 136, potassium 3.9, BUN/creatinine of 13.4/0.8 Patient remains on IV antibiotics; general surgery on board and recommending to continue with conservative management; continue with IV fluid hydration 05/12/2021 Patient is currently sitting in the bed comfortably. Denied any complaints of nausea and vomiting. Abdominal discomfort/pain is much improved. Patient is able to pass flatness. Patient was started on oral diet and advance as tolerated. Continued on antibiotics in the form of Zosyn. Patient has been afebrile. No complaints of chest pain or shortness breath. No fever no chills. Gen. surgery is following. 05/13/2021 Patient is currently able to ambulate in the room. Able to pass flatus. No complaints of abdominal discomfort/pain. No nausea vomiting and diarrhea. No fever no chills. minutes of chest pain or shortness of breath. no headache or dizziness or lightheadedness. no other acute overnight issues. patient can be discharged home with oral antibiotic course. levaquin and flagyl for 4-7 days. Current medications reviewed. Objective - Vital Signs Vital signs: Vital Signs Temp 98 F 05/13/21 12:19 Pulse 76 05/13/21 12:19 Resp 18 05/13/21 12:19 BP 138/81 05/13/21 12:19 Pulse Ox 97 05/13/21 12:19 Intake & Output 05/12/21 05/13/21 05/13/21 18:59 06:59 18:59 Intake Total 1660 1660 Balance 1660 1660 Intake: IV 100 1660 Piperacillin-Tazobactam 3 100 100 .375 gm In Sodium Chloride 0.9% 100 ml @ 25 mls/hr IVPB Q8HR [facility] Rx# :[id number] Sodium Chloride 0.9% 1, 1560 000 ml @ 130 mls/hr IV . Q7H42M [facility] Rx#:[id number] Intake, IV Titration 1560 Amount Sodium Chloride 0.9% 1, 1560 000 ml @ 130 mls/hr IV . Q7H42M [facility] Rx#:[id number] Other: Voiding Method Toilet - Exam PHYSICAL EXAMINATION: GENERAL: The patient is alert and oriented x3, not in any acute distress. Well developed, well nourished. HEENT: Pupils are round and equally reacting to light. EOMI. No scleral icterus. No conjunctival pallor. Normocephalic, atraumatic. No pharyngeal erythema. No thyromegaly. CARDIOVASCULAR: S1 and S2 present. No murmurs, rubs, or gallops. PULMONARY: Chest is clear to auscultation, no wheezing or crackles. ABDOMEN: Soft, nontender, non-distended. Bowel sounds present. MUSCULOSKELETAL: No joint swelling or deformity. EXTREMITIES: No cyanosis, clubbing, or pedal edema. NEUROLOGICAL: Gross neurological examination did not reveal any focal deficits. SKIN: No rashes. Intact. - Labs CBC & Chem 7: 05/13/21 08:44 05/11/21 05:34 Labs: Abnormal Lab Results - Last 24 Hours (Table) 10/26/21 Range/Units 08:44 RBC 3.65 L (3.80-5.40) m/uL Assessment and Plan Assessment: 1. Acute diverticulitis with microperforation - Patient is planned to be treated medically with IV antibiotics in form of Zosyn 3.375 g IV every 8 hours and IV fluids; plan is to monitor clinically with plans to proceed with surgical exploration if patient deteriorates - We will monitor CBC, and BMP -Follow up culture reports. Patient will need outpatient antibiotic course with Levaquin and Flagyl. 2. Hyponatremia; likely hypovolemic IV fluids in form of normal saline at 75 mL an hour; improved now. 3. Hyperglycemia; no history of diabetes; possibly stress related; we will monitor Accu-Cheks with further recommendations according 4. Hyperlipidemia; hold off on statin therapy to oral intake improves 5. Hypothyroidism; continue with home dose of levothyroxine and Cytomel 6. CVA/TIA; continue with aspirin 81 mg daily DVT prophylaxis; SCDs CODE STATUS; full code
--- NOTE | 2021-05-13 14:54 | P.DS ---
Providers Date of admission: 05/09/21 21:29 Expected date of discharge: 05/13/21 Attending physician: Idris Holcomb Consults: 05/10/21 11:08 Consult Physician Routine Consulting Provider: Fredis Condon Consult Reason/Comments: Medical management Do you want consulting provider notified?: Yes Primary care physician: Cici Bonner Hospital Course: Discharge diagnosis 1. Diverticulitis with microperforation 2. I[facility] Hospital course This is a 70-year-old female who presented with left lower abdominal pain. She was found have evidence of diverticulitis with microperforation on CAT scan. Patient was treated conservatively with IV antibiotics. Patient's pain has shown improvement. She is a tolerated diet. She is having flatus. It's been about 4 days since her last bowel movement. She denies any nausea or vomiting. Her white count has remained normal. She is afebrile. She's up and ambulating. She is stable for discharge. Patient will continue antibiotics after discharge. Patient also given prescription for Metamucil and Colace to help with constipation. Patient is stable for discharge. Please refer to chart for any further details. Physician Director Outpatient Services note has been reviewed by physician. Signing provider agrees with the documented findings, assessment, and plan of care. Patient Condition at Discharge: Stable Plan - Discharge Summary New Discharge Prescriptions: New Levofloxacin [Levaquin] 500 mg PO DAILY 7 Days #7 tab Psyllium Husk 100% [Metamucil Packet] 1 packet PO DAILY #30 packet HYDROcodone/APAP 5-325MG [[place] 5-325] 1 tab PO Q6HR PRN 3 Days #12 tab PRN Reason: Pain Docusate [Colace] 100 mg PO BID #30 capsule metroNIDAZOLE [Flagyl] 500 mg PO Q8HR #21 tab Continue Meclizine [Antivert] 25 mg PO DAILY Liothyronine Sodium [Cytomel] 5 mcg PO DAILY Triamterene-Hctz 37.5-25Mg [Dyazide 37.5-25 Capsule] 1 cap PO DAILY Multivit-Min/FA/Lycopen/Lutein [Centrum Silver Tablet] 1 tab PO DAILY Cholecalciferol [Vitamin D3 (25 Mcg = 1000 Iu)] 25 mcg PO DAILY Turmeric Root Extract [Turmeric] 500 mg PO TID Ascorbic Acid [Vitamin C] 500 mg PO DAILY Vitamin B Complex 1 cap PO DAILY Mirabegron [Myrbetriq] 50 mg PO DAILY Garlic 1 tab PO DAILY Magnesium Citrate 125 mg PO DAILY Glucosam/Ravinder-Msm1/C/Yusef/Bosw [Glucosamine-Chondroitin Tablet] 1 tab PO DAILY Levothyroxine Sodium [Synthroid] 112 mcg PO DAILY Aspirin 81 mg PO BID Discharge Medication List Cholecalciferol [Vitamin D3 (25 Mcg = 1000 Iu)] 25 mcg PO DAILY 06/13/16 [History] Liothyronine Sodium [Cytomel] 5 mcg PO DAILY 06/13/16 [History] Meclizine [Antivert] 25 mg PO DAILY 06/13/16 [History] Multivit-Min/FA/Lycopen/Lutein [Centrum Silver Tablet] 1 tab PO DAILY 06/13/16 [History] Triamterene-Hctz 37.5-25Mg [Dyazide 37.5-25 Capsule] 1 cap PO DAILY 06/13/16 [History] Turmeric Root Extract [Turmeric] 500 mg PO TID 06/13/16 [History] Ascorbic Acid [Vitamin C] 500 mg PO DAILY 05/09/21 [History] Aspirin 81 mg PO BID 05/09/21 [History] Garlic 1 tab PO DAILY 05/09/21 [History] Glucosam/Ravinder-Msm1/C/Yusef/Bosw [Glucosamine-Chondroitin Tablet] 1 tab PO DAILY 05/09/21 [History] Levothyroxine Sodium [Synthroid] 112 mcg PO DAILY 05/09/21 [History] Magnesium Citrate 125 mg PO DAILY 05/09/21 [History] Mirabegron [Myrbetriq] 50 mg PO DAILY 05/09/21 [History] Vitamin B Complex 1 cap PO DAILY 05/09/21 [History] Docusate [Colace] 100 mg PO BID #30 capsule 05/13/21 [Rx] HYDROcodone/APAP 5-325MG [[place] 5-325] 1 tab PO Q6HR PRN 3 Days #12 tab 05/13/21 [Rx] Levofloxacin [Levaquin] 500 mg PO DAILY 7 Days #7 tab 05/13/21 [Rx] Psyllium Husk 100% [Metamucil Packet] 1 packet PO DAILY #30 packet 05/13/21 [Rx] metroNIDAZOLE [Flagyl] 500 mg PO Q8HR #21 tab 05/13/21 [Rx] Follow up Appointment(s)/Referral(s): Cici Bonner DO [Primary Care Provider] - 1-2 days Idris Holcomb MD [STAFF PHYSICIAN] - 1 Week Activity/Diet/Wound Care/Special Instructions: Continue full liquid diet over the next couple a days and then advance as tolerated Discharge Disposition: HOME SELF-CARE
== END 2021-05-13 17:22 | disposition home or self-care (01) | DRG 392 ==
LOC: EC 16:51 → 5NMEDONC 21:29
PROVIDERS: ADMIT Surgery; ATTEND Surgery
DX: K57.20 Diverticulitis of large intestine with perforation and abscess without bleeding (principal); K56.7 Ileus, unspecified; E87.1 Hypo-osmolality and hyponatremia; R73.9 Hyperglycemia, unspecified; E78.5 Hyperlipidemia, unspecified; E86.1 Hypovolemia; E03.9 Hypothyroidism, unspecified; L40.9 Psoriasis, unspecified; M19.90 Unspecified osteoarthritis, unspecified site; Z20.822 Contact with and (suspected) exposure to COVID-19; Z79.890 Hormone replacement therapy; Z79.82 Long term (current) use of aspirin; Z86.73 Personal history of transient ischemic attack (TIA), and cerebral infarction without residual deficits; Z79.899 Other long term (current) drug therapy
CPT/HCPCS: 36415; 70450; 74177; 80048; 80053; 81001; 83605; 83690; 84145; 85025; 86140; 87635; 96361; 96374; 96375; 99285

== ENCOUNTER 2021-06-09 12:40 | Day surgery (SDC) | payer MEDICARE, BC ==
[2021-06-05 12:12] VITALS: BMI 34.9
[~2021-06-09 12:40] MED LIST: LACTATED RINGERS 1,000 ML IV SCH
[2021-06-09 13:34] VITALS: RESP 16; TEMP 97.8
[2021-06-09] MEDS ORDERED: LIDOCAINE 1% INJ 10MG/ML (20 ML MDV) ONE (14:29)
[2021-06-09] MEDS ORDERED: PROPOFOL 10 MG/ML 20 ML VIAL IV ONE (14:29)
--- NOTE | 2021-06-09 14:33 | P.GSHP ---
History of Present Illness H&P Date: 06/09/21 Chief Complaint: Diverticulitis This is a 70-year-old female who presents today for colonoscopy. She has a history of diverticulitis. Past Medical History Past Medical History: CVA/TIA, Hyperlipidemia, Osteoarthritis (OA), Skin Disord er, Thyroid Disorder Additional Past Medical History / Comment(s): Meneire's Disease; TIA 2015-no residual effects, 04/2021 diverticulitis/perforated bowel, hx stage III renal disease from aleve-"better now" History of Any Multi-Drug Resistant Organisms: None Reported Past Surgical History: Section Additional Past Surgical History / Comment(s): biopsy of gland on neck, C/S x 3, Past Anesthesia/Blood Transfusion Reactions: Motion Sickness Smoking Status: Former smoker - Past Family History Father Family Medical History: Cancer Additional Family Medical History / Comment(s): Throat cancer Mother Family Medical History: Dementia, Hyperlipidemia, Hypertension, Osteoarthritis (OA), Rheumatoid Arthritis (RA), Thyroid Disorder Medications and Allergies Home Medications Medication Instructions Recorded Confirmed Type Cholecalciferol [Vitamin D3 (25 25 mcg PO DAILY 06/13/16 06/05/21 History Mcg = 1000 Iu)] Liothyronine Sodium [Cytomel] 5 mcg PO DAILY 06/13/16 06/05/21 History Meclizine [Antivert] 25 mg PO DAILY 06/13/16 06/05/21 History Multivit-Min/FA/Lycopen/Lutein 1 tab PO DAILY 06/13/16 06/05/21 History [Centrum Silver Tablet] Triamterene-Hctz 37.5-25Mg 1 cap PO DAILY 06/13/16 06/05/21 History [Dyazide 37.5-25 Capsule] Turmeric Root Extract [Turmeric] 500 mg PO TID 06/13/16 06/05/21 History Ascorbic Acid [Vitamin C] 500 mg PO DAILY 05/09/21 06/05/21 History Aspirin 81 mg PO BID 05/09/21 06/05/21 History Garlic 1 tab PO DAILY 05/09/21 06/05/21 History Glucosam/Ravinder-Msm1/C/Yusef/Bosw 1 tab PO DAILY 05/09/21 06/05/21 History [Glucosamine-Chondroitin Tablet] Levothyroxine Sodium [Synthroid] 112 mcg PO DAILY 05/09/21 06/05/21 History Magnesium Citrate 125 mg PO DAILY 05/09/21 06/05/21 History Mirabegron [Myrbetriq] 50 mg PO DAILY 05/09/21 06/09/21 History Vitamin B Complex 1 cap PO DAILY 05/09/21 06/05/21 History Docusate [Colace] 100 mg PO BID #30 capsule 05/13/21 06/09/21 Rx Psyllium Husk 100% [Metamucil 1 packet PO DAILY #30 packet 05/13/21 06/05/21 Rx Packet] Zinc 50 mg PO DAILY 06/05/21 06/05/21 History Allergies Allergy/AdvReac Type Severity Reaction Status Date / Time benzoyl peroxide Allergy Rash/Hives/red Verified 06/09/21 13:08 skin and blisters Surgical - Exam Vital Signs Temp Pulse Resp BP Pulse Ox 97.8 F 101 H 16 174/81 96 06/09/21 13:33 06/09/21 13:33 06/09/21 13:33 06/09/21 13:33 06/09/21 13:33 - General well developed, well nourished, no distress - Eyes PERRL - ENT normal pinna - Neck no masses - Respiratory normal expansion - Cardiovascular Rhythm: regular - Abdomen Abdomen: soft, non tender Assessment and Plan Assessment: Diverticulitis. We'll perform colonoscopy.
--- NOTE | 2021-06-09 14:44 | P.OP ---
Date of Procedure: 06/09/21 Preoperative Diagnosis: Diverticulitis Postoperative Diagnosis: Diverticulosis Procedure(s) Performed: Colonoscopy Anesthesia: MAC Surgeon: Idris Holcomb Pathology: none sent Condition: stable Disposition: PACU Description of Procedure: Patient's placed on the endoscopy table in the lateral position. She received IV station. Digital rectal exam was performed which revealed a few external hemorrhoids. Flexible colonoscope was then placed patient anus passed throughout the colon. Patient extensive diverticular changes of the sigmoid left colon. The colon was quite tortuous. At this point the scope was withdrawn. There is. That continue to progress the scope could cause injury to the colon. There was significant diverticular changes of the descending and sigmoid colon. Scope was brought back the rectum this appeared normal. Scope withdrawn for patient.
[2021-06-09 15:21] VITALS: BP 161/74; PULSE 89
== END 2021-06-09 15:58 | disposition home or self-care (01) ==
LOC: ORWHC2ENDO 12:40
PROVIDERS: ATTEND Surgery
DX: K57.30 Diverticulosis of large intestine without perforation or abscess without bleeding (principal); E78.5 Hyperlipidemia, unspecified; M19.90 Unspecified osteoarthritis, unspecified site; H81.09 Meniere's disease, unspecified ear; Z86.73 Personal history of transient ischemic attack (TIA), and cerebral infarction without residual deficits; Z87.891 Personal history of nicotine dependence; Z79.899 Other long term (current) drug therapy; Z88.8 Allergy status to other drugs, medicaments and biological substances; Z79.82 Long term (current) use of aspirin
CPT/HCPCS: 45378; J2001; J2704

== ENCOUNTER → 2021-11-18 | Outpatient (CLI) | payer MEDICARE, BC ==
--- NOTE | 2021-11-18 15:11 | BD ---
EXAMINATION TYPE: Axial Bone Density DATE OF EXAM: 11/18/2021 COMPARISON: Prior DEXA bone scan 2017 CLINICAL HISTORY: 71 years year old Female. ICD-10 CODE: Z78.0 Post menopausal without hrt Height: 61 Weight: 191.8 FRAX RISK QUESTIONS: Alcohol (3 or more units per day): no Family History (Parent hip fracture): no Glucocorticoids (More than 3mos): no (Ex: prednisone, prednisolone, methylprednisolone, dexamethasone, and hydrocortisone). History of Fracture in Adulthood: no Secondary Osteoporosis: 1. Type 1 Diabetes: no 2. Hyperthyroidism: no 3. Menopause before 45: no 4. Malnutrition: no 5. Chronic liver disease: no Rheumatoid Arthritis: no Current Tobacco Use: no RISK FACTORS HISTORY OF: History of Wrist Fracture: left When: as a child Surgery to Spine/Hip(right/left)/Wrist (right/left): no Family History of Osteoporosis: yes Active: no Diet low in dairy products/other sources of calcium: yes Postmenopausal woman: yes Lost more than 2 inches in height since high school: no MEDICATIONS: Thyroid Medications: synthroid How Long: since age 19 Additional History: EXAM MEASUREMENTS: Bone mineral densitometry was performed using the [employer] System. Bone mineral density as measured about the Lumbar spine is: ----- L1-L4(G/cm2): 0.938 T Score Values are as follows: ----- L1: -2.3 ----- L2: -2.3 ----- L3: -1.7 ----- L4: -2.1 ----- L1-L4: -2.0 Bone mineral density has: decreased -0.9 % since study of: 03.15.2018 Bone mineral density about the R hip (g/cm2): 0.903 Bone mineral density about the L hip (g/cm2): 0.897 T Score values are as follows: -----R Neck: -1.0 -----L Neck: -1.0 -----R Total: -0.5 -----L Total: -0.5 Bone mineral density has: decreased -4.6 % since study of: 03.15.2018 FRAX%s: The graph provided illustrates a 7.9% chance for a major osteoporotic fx and a 0.7% chance fo r the hips probability for fx in 10 years time. IMPRESSION: Osteopenia (T Score between -2.5 and -1) redemonstrated. There remains slightly increased risk of fracture and the patient may be considered for treatment. Re-Screen 2-5 years. NOTE: T-SCORE=SD OF THE YOUNG ADULT MEAN.
== END | disposition home or self-care (01) ==
LOC: RADBDWWP 13:19
PROVIDERS: ATTEND Family Medicine
DX: M85.89 Other specified disorders of bone density and structure, multiple sites (principal); Z78.0 Asymptomatic menopausal state
CPT/HCPCS: 77080

== ENCOUNTER → 2024-01-06 | Outpatient (CLI) | payer MEDICARE, BC ==
--- NOTE | 2024-01-08 18:29 | CT ---
EXAMINATION TYPE: CT heart w calcium score DATE OF EXAM: none COMPARISON: none HISTORY: Screening for cardiovascular disorder. 213.9 CT DLP: 71.7 mGycm Automated exposure control for dose reduction was used. CT CALCIUM SCORING Coronary calcium is a marker for plaque (fatty deposits) in a blood vessel or atherosclerosis (harden ing of the arteries). The presence and amount of calcium detected in a coronary artery by the CT sca n, indicates the presence and amount of atherosclerotic plaque. These calcium deposits appear years before the development of heart disease symptoms such as chest pain and shortness of breath. A calcium score is computed for each of the coronary arteries based upon the volume and density of th e calcium deposits. This can be referred to as your calcified plaque burden. It does not correspond directly to the percentage of narrowing in the artery but does correlate with the severity of the un derlying coronary atherosclerosis. PROCEDURE TECHNIQUE - Prospective Gating was used. Slice thickness: 3mm. Density threshold (HU): 130, Pixel threshold: 3, Algorithm: discrete. RESULTS Region: LM Calcium Score ([place]): 1.1 Volume (mm3): 0 Mass (g): 0 Region: RCA Calcium Score ([place]): 0 Volume (mm3): 0 Mass (g): 0 Region: LAD Calcium Score ([place]): 1.1 Volume (mm3): 3.31 Mass (g): 1.1 Region: CX Calcium Score ([place]): 0 Volume (mm3): 0 Mass (g): 0 Region: PDA Calcium Score ([place]): 0 Volume (mm3): 0 Mass (g): 0 Total: Calcium Score ([place]at[place]): 1.1 Volume (mm3): 3.31 Mass (g): 1.1 TOTAL CALCIUM SCORE: 1.1 IMPRESSION: Calcium Score: 1.1 Implication: Minimal plaque is present Risk of Coronary Artery Disease: Unlikely, less than 10% Impression: 1. Very minimal calcification within the left anterior descending artery. Significant flow-limiting s tenosis within coronary vessels unlikely. CALCIUM SCORE IMPLICATION RISK OF C ORONARY ARTERY DISEASE 0 No identifiable plaque Very low, generally less than 5% 1-10 Minimal identifiable plaque Very unlikely, less than 10% 11-100 Definite, at least mild atherosclerotic plaque Mild or m inimal coronary narrowings likely 101-400 Definite, at least moderate atherosclerotic plaque Mild coronary ar guero disease highly likely, significant narrowing possible 401 or Higher Extensive atherosclerotic plaque High lik elihood of at least one significant coronary narrowing
== END | disposition home or self-care (01) ==
LOC: RADCTMAIN 14:08
PROVIDERS: ATTEND Family Medicine
DX: I25.10 Atherosclerotic heart disease of native coronary artery without angina pectoris (principal); E78.00 Pure hypercholesterolemia, unspecified; E78.2 Mixed hyperlipidemia
CPT/HCPCS: 75571

== ENCOUNTER → 2024-01-10 | Outpatient (CLI) | payer MEDICARE, BC ==
--- NOTE | 2024-01-11 15:41 | BD ---
EXAMINATION TYPE: Axial Bone Density DATE OF EXAM: 01/10/2024 CLINICAL HISTORY: 73 years old Female. ICD-10 CODE: Z12.31 SCR MAMMO Height: 59.5 Weight: 183.1 FRAX RISK QUESTIONS: Alcohol (3 or more units per day): no Family History (Parent hip fracture): no Glucocorticoids (More than 3mos): no (Ex: prednisone, prednisolone, methylprednisolone, dexamethasone, and hydrocortisone). History of Fracture in Adulthood: no Secondary Osteoporosis: 1. Type 1 Diabetes: no 2. Hyperthyroidism: no 3. Menopause before 45: no 4. Malnutrition: no 5. Chronic liver disease: no Rheumatoid Arthritis: no Current Tobacco Use: no RISK FACTORS HISTORY OF: Hip Fracture (Right/Left): no Spine Fracture: no History of Wrist Fracture: n o Surgery to Spine/Hip(right/left)/Wrist (right/left): no MEDICATIONS: Thyroid Medications: Levothyroxine How Long: past 50 years Osteoporosis Medications: no EXAM MEASUREMENTS: Bone mineral densitometry was performed using the [employer] System. Bone mineral density as measured about the Lumbar spine is: ----- L1-L4(G/cm2): 0.940 T Score Values are as follows: ----- L1: -1.6 ----- L2: -2.3 ----- L3: -2.1 ----- L4: -2.1 ----- L1-L4: -2.0 Z Score Values are as follows: ----- L1: -0.5 ----- L2: -1.2 ----- L3: -1.0 ----- L4: -1.1 ----- L1-L4: -0.9 Bone mineral density has: increased 0.2 % since study of: 11/18/2021 Bone mineral density about the R hip (g/cm2): 0.939 Bone mineral density about the L hip (g/cm2): 0.972 T Score values are as follows: -----R Neck: -1.1 -----L Neck: -1.1 -----R Total: -0.5 -----L Total: -0.3 Z Score values are as follows: -----R Neck: 0.3 -----L Neck: 0.3 -----R Total: 0.5 -----L Total: 0.8 Bone mineral density has: increased 1.1 % since study of: 11/18/2021 FRAX%s: The graph provided illustrates a 8.4% chance for a major osteoporotic fx and a 0.9% chance fo r the hips probability for fx in 10 years time. IMPRESSION: Osteopenia (T Score between -2.5 and -1). There is slightly increased risk of fracture and the patient may be considered for treatment. Re-Screen 2-5 years. NOTE: T-SCORE=SD OF THE YOUNG ADULT MEAN.
== END | disposition home or self-care (01) ==
LOC: RADBDWWP 15:58
PROVIDERS: ATTEND Family Medicine
DX: M85.89 Other specified disorders of bone density and structure, multiple sites (principal); Z78.0 Asymptomatic menopausal state
CPT/HCPCS: 77080